=== PATIENT | female | born 1965 | race Caucasian/White ===

== ENCOUNTER 2018-07-28 18:20 | Emergency (ER) | payer MEDICAID ==
[2018-07-28] MEDS ORDERED: CYCLOBENZAPRINE HCL 10 MG TABLET ONE (19:37)
== END 2018-07-28 19:41 | disposition home or self-care (01) ==
LOC: EDH 18:20
DX: S13.9XXA Sprain of joints and ligaments of unspecified parts of neck, initial encounter (principal); M54.5 Low back pain; M62.838 Other muscle spasm; I10 Essential (primary) hypertension; E11.9 Type 2 diabetes mellitus without complications; E07.9 Disorder of thyroid, unspecified; Z98.890 Other specified postprocedural states; Z90.89 Acquired absence of other organs; Z88.5 Allergy status to narcotic agent; Z88.8 Allergy status to other drugs, medicaments and biological substances; V59.49XA Driver of pick-up truck or van injured in collision with other motor vehicles in traffic accident, initial encounter; Y93.89 Activity, other specified; Y92.410 Unspecified street and highway as the place of occurrence of the external cause; Y99.8 Other external cause status
CPT/HCPCS: 72040; 72100

== ENCOUNTER → 2021-08-19 | Outpatient (CLI) | payer BC, MEDICAID ==
[~2021-08-19] VITALS: Ht 167.6 cm; Wt 109.8 kg
[~2021-08-19] MED LIST: REGADENOSON 0.4 MG/5 ML PF SYG IVP SCH
== END | disposition home or self-care (01) ==
LOC: SHCH 09:17
PROVIDERS: ATTEND Internal Medicine Cardiovascular Disease
DX: I47.2 Ventricular tachycardia (principal); I49.3 Ventricular premature depolarization; I49.9 Cardiac arrhythmia, unspecified; R94.39 Abnormal result of other cardiovascular function study
CPT/HCPCS: 78452; 93017; 96374; A9500 ×2; J2785

== ENCOUNTER 2024-07-22 21:51 | Emergency (ER) | payer BC, MEDICAID ==
[~2024-07-22] VITALS: Ht 167.6 cm; Wt 99.8 kg
[2024-07-22 21:53] VITALS: BP 168/73; PULSE 77; RESP 20; TEMP 98.2
--- NOTE | 2024-07-22 21:54 | NUR ---
COVD, FLU AND STREP SWABS COLLECTED AND SENT [facility] PROVIDED
[2024-07-22 22:20] LABS: RAPID GROUP A STREP negative (NEGATIVE)
[2024-07-22 22:25] LABS: SARS-CoV-2, RNA, NAAT NEGATIVE SARS CoV-2 (NEGATIVE)
[2024-07-22 22:30] LABS: INFLUENZA TYPE A Negative For Type A (NEGATIVE); INFLUENZA TYPE B Negative For Type B (NEGATIVE)
--- NOTE | 2024-07-22 22:34 | NUR ---
PT CALLED FOR BEDDING. NO ANSWER, NOT IN LOBBY WITH FAMILY
--- NOTE | 2024-07-22 22:37 | NUR ---
PT CALLED FOR BEDDING. NO ANSWER
--- NOTE | 2024-07-22 22:42 | NUR ---
PT CALLED, NO ANSWER. NOT IN LOBBY, NOT IN FAST TRACK OR MAIN ER
== END 2024-07-22 22:43 | disposition left against medical advice (07) ==
LOC: EDH 21:51
DX: R05.9 Cough, unspecified (principal); Z53.21 Procedure and treatment not carried out due to patient leaving prior to being seen by health care provider; Z20.822 Contact with and (suspected) exposure to COVID-19
CPT/HCPCS: 87635; 87804; 87880